=== PATIENT | male | born 1995 | race Caucasian/White ===

== ENCOUNTER 2017-05-12 21:00 | Inpatient (IN) | payer OTHER ==
[~2017-05-12] VITALS: Ht 165.1 cm; Wt 70.8 kg
--- NOTE | ~2017-05-12 | PN ---
Unit #: [id number] #: [id number] Patient: BRODY BENNETT [id number] [facility] [address] [place] [address] [id number] I MR#: [id number] NAME: BRODY BENNETT ROOM: [facility] Age: 21 Sex: M Admission Date: 05/13/2017 : 1995 Attending Physician: Wiley Hua M.D. Admitting Physician: Wiley Hua M.D. Primary Care Physician: Nuria Doctor Not In System [facility] PROGRESS NOTES DATE 05/18/2017 DISCUSSION Mr. Bennett is a 21-year-old white male who was seen today and chart was reviewed and case was discussed with the staff. He has been anxious, withdrawn and rather seclusive to himself. Meanwhile, he has been cooperative with treatment recommendations and has been taking medications and tolerating them fairly well with no reported side effects. MENTAL STATUS EXAMINATION Young white male who was casually dressed with fair personal hygiene and appears to be in no acute distress or discomfort. He was awake and alert on interaction with intact orientation. His mood was anxious with congruent affect. He denies any suicidal or homicidal ideations. His insight and judgement remains slightly impaired. TREATMENT PLAN 1. Will continue on his current treatment protocol. Will monitor his response and make further adjustments as needed. 2. Will continue to follow up. Dictated by... Wiley Hua M.D. IAA/fernandoh TD: 05/18/2017 22:03 JOB #: [id number] Unit #: [id number] #: [id number] Patient: BRODY BENNETT [facility] PROGRESS NOTES Page 1 of 1 X Wiley uHa MD PROGRESS NOTE
--- NOTE | ~2017-05-12 | CO ---
Unit #: [id number] #: [id number] Patient: BRODY BENNETT [id number] [facility] [address] [place] [address] [id number] MR#: [id number] NAME: BRODY BENNETT ROOM: [facility] Age: 21 Sex: M Admission Date: 05/13/2017 : 1995 Attending Physician: Wiley Hua M.D. Primary Care Physician: Generic Doctor Not In System Consultation Date: 05/13/2017 CONSULTATION REPORT ORDERING PROVIDER Dr. Hua. REASON FOR CONSULT Hypokalemia. SUBJECTIVE The patient refused to answer any questions. He has been refusing to eat and drink per nursing. OBJECTIVE His hospital records were reviewed and he was noted to have a potassium of 2.9. However, he was given 2 runs of potassium in the hospital and sent home with prescription for 2 days worth of oral potassium. His potassium levels were rechecked when he came to [facility] and noted to be 3.4. ASSESSMENT Hypokalemia. PLAN Plan is to continue him on the oral potassium as long as he agrees to take it. We will recheck his potassium in 48 hours. Dictated by... Mark Ware/laxmi TD: 05/14/2017 21:57 JOB #: [id number] Unit #: [id number] #: [id number] Patient: BRODY BENNETT CONSULTATION REPORT Page 1 of 1 X ESTEVAN HDEZ APRN CONSULTATION REPORT
--- NOTE | ~2017-05-12 | PN ---
Unit #: [id number] #: [id number] Patient: BRODY BENNETT [id number] [facility] [address] [place] [address] [id number] I MR#: [id number] NAME: BRODY BENNETT ROOM: [facility] Age: 21 Sex: M Admission Date: 05/13/2017 : 1995 Attending Physician: Wiley Hua M.D. Admitting Physician: Wiley Hua M.D. Primary Care Physician: Nuria Doctor Not In System [facility] PROGRESS NOTES DATE 05/15/2017 DISCUSSION Mr. Bennett is a 21-year-old, white male with mood disorder and psychosis who was seen today and chart was reviewed and case was discussed with the staff. He has been anxious, withdrawn, depressed and rather seclusive to himself with blunted affect and minimal interaction (1) cooperative with the treatment recommendations. He has been taking the medication and tolerating them fairly well with no reported side effects. MENTAL STATUS EXAM Young white male who was casually dressed with fair personal hygiene, appears to be in no acute distress or discomfort. He was awake and alert with impaired attention and concentration. His mood was anxious with congruent affect. His speech was slow and restricted in content. His thought processes were disorganized with some looseness of associations. His insight and judgement remains significantly impaired. TREATMENT PLAN 1. We will continue him on his current medications and treatment protocol. We will monitor his response to the medication and make further adjustments as needed. 2. We will continue to follow up. Dictated by... Liz Parker/lyndsay TD: 05/16/2017 04:27 JOB #: [id number] Unit #: [id number] #: [id number] Patient: BRODY BENNETT [facility] PROGRESS NOTES Page 1 of 1 X Wiley Hua MD PROGRESS NOTE
--- NOTE | ~2017-05-12 | HP ---
Unit #: [id number] #: [id number] Patient: BRODY BENNETT [id number] [place] [address] [id number] I MR#: [id number] NAME: BRODY BENNETT ROOM: [facility] Age: 21 Sex: M Admission Date: 05/13/2017 : 1995 Attending Physician: Wiley Hua M.D. Admitting Physician: Wiley Hua M.D. Primary Care Physician: Generic Doctor Not In System HISTORY AND PHYSICAL HISTORY OF PRESENT ILLNESS The patient is a 21-year-old male admitted to [address] [place] [address] on 05/13/2017 for aggression and depression. PAST MEDICAL HISTORY The patient denies. PAST SURGICAL HISTORY The patient denies. SOCIAL HISTORY He lives with his mom. He denies alcohol, tobacco and drug use. FAMILY MEDICAL HISTORY Noncontributory. ALLERGIES No known drug allergies. CURRENT MEDICATIONS 1. Remeron 2. Benztropine 3. Prozac 4. Risperidone REVIEW OF SYSTEMS CONSTITUTIONAL: No fever or chills. HEENT: Denies any sore throat, ear pain or runny nose. CARDIOVASCULAR: Denies chest pain, irregular heart rhythm or palpitations. CHEST: Denies shortness of breath or cough. No hemoptysis. GASTROINTESTINAL: Denies nausea, vomiting, diarrhea or chronic constipation. ENDOCRINE: Denies history of increased thirst or urination. No recent significant weight loss or gain. GENITOURINARY: Denies dysuria, frequency, or hematuria. SKIN: Denies any rashes. HEMATOLOGIC: Denies history of increased bleeding or bruising. MUSCULOSKELETAL: Denies any hot, swollen joints. No generalized muscle pain. NEUROLOGIC: Denies problems with vision or speech. No frequent, severe headaches. No numbness, tingling or weakness in any extremities. Denies loss of bladder or bowel control. PHYSICAL EXAM Unit #: [id number] #: [id number] Patient: BRODY BENNETT GENERAL: He is awake, alert and oriented in no acute distress. VITAL SIGNS: Temperature 98.6, heart rate 86, respiration 20, blood pressure 129/75. HEIGHT: 5'5". WEIGHT: 156 pounds. SKIN: Warm and dry without rash or lesion. HEENT: Normocephalic. TMs not viewed. Oral and nasal passages clear. Conjunctivae clear. PERRLA. EOMs intact. NECK: Supple without lymphadenopathy or thyromegaly. HEART: Regular rate and rhythm without murmur. LUNGS: Clear. ABDOMEN: Soft, nontender. : Not done. EXTREMITIES: No evidence of cyanosis, clubbing or edema. Moves all without focal deficit. NEUROLOGICAL: Grossly within normal limits. Cranial Nerves: II: Visual ramos are intact. III, IV AND : Extraocular movements are intact. Pupils are equal, round and reactive to light. V: Facial sensation is grossly normal. VII: Facial movements and expression are normal. VIII: Auditory acuity grossly intact. IX, X: Uvula is midline. Phonation is normal. XI: Patient shrugs shoulders and turns head normally. XII: Tongue protrudes in the midline. Sensory and Motor Function: Sensory and motor sensation is grossly normal. Motor: moves all extremities well. IMPRESSION Psychiatric admission. RECOMMENDATIONS Psychiatric per psychiatrist. MEDICAL: No contraindication to participate in facility activities. MEDICAL PROGNOSIS Good. MEDICAL CONDITION Stable. Dictated by... Mark Ware/lyndsay TD: 05/15/2017 04:19 JOB #: [id number] Unit #: [id number] #: [id number] Patient: BRODY BENNETT HISTORY AND PHYSICAL Page 1 of 1 X ESTEVAN HDEZ APRN HISTORY AND PHYSICAL
--- NOTE | ~2017-05-12 | PN ---
Unit #: [id number] #: [id number] Patient: KOSTAS BENNETT [id number] [facility] [address] [place] [address] [id number] I MR#: [id number] NAME: KOSTAS BENNETT ROOM: [facility] Age: 21 Sex: M Admission Date: 05/13/2017 : 1995 Attending Physician: Wiley Hua M.D. Admitting Physician: Wiley Hua M.D. Primary Care Physician: Generic Doctor Not In System [facility] PROGRESS NOTES DATE OF SERVICE 05/14/2017 DISCUSSION Kostas Bennett is a 21-year-old white male who was seen today. Chart was reviewed and case was discussed with the staff. He has been anxious, withdrawn, and rather seclusive to himself. Meanwhile, he has been cooperative with the treatment recommendations and has been taking the medications and tolerating them fairly well. MENTAL STATUS EXAMINATION Young white male who is casually dressed with fair personal hygiene, appears to be in no acute distress or discomfort. He was awake and alert with impaired attention and concentration. His mood is anxious with congruent affect. Speech is slow and restricted in content. His thought processes were disorganized with some looseness of associations. His insight and judgment remain significantly impaired. TREATMENT PLAN 1. We will continue him on his current medications and treatment protocol. We will monitor his response to the medications and make further adjustments as needed. 2. We will continue to follow up. Dictated by... Wiley Hua M.D. IAA/bzg TD: 05/15/2017 10:58 JOB #: [id number] Unit #: [id number] #: [id number] Patient: KOSTAS BENNETT PROGRESS NOTES Page 1 of 1 X Wiley Hua MD X PROGRESS NOTE
--- NOTE | ~2017-05-12 | PN ---
Unit #: [id number] #: [id number] Patient: BRODY BENNETT [id number] [facility] [address] [place] [address] [id number] I MR#: [id number] NAME: BRODY BENNETT ROOM: [facility] Age: 21 Sex: M Admission Date: 05/13/2017 : 1995 Attending Physician: Wiley Hua M.D. Admitting Physician: Wiley Hua M.D. Primary Care Physician: Nuria Doctor Not In System [facility] PROGRESS NOTES DATE May 16, 2017 DISCUSSION Mr. Bennett is a 21-year-old white male, with mood disorder, and psychosis, who was seen today and chart was reviewed and the case was discussed with the staff. He has been anxious, withdrawn, and rather seclusive to himself. Meanwhile, he has been cooperative with the treatment recommendations and he has been taking the medications and tolerating them fairly well with no reported side effects. MENTAL STATUS EXAMINATION Young white male, who was casually dressed with fair personal hygiene and appears to be in no acute distress or discomfort. He was awake and alert on interaction with intact orientation. His mood is anxious with a congruent affect. He denies any suicidal or homicidal ideations. His insight and judgment remain significantly impaired. TREATMENT PLAN 1. We will continue him on his current medications and treatment protocol, and will monitor his response to the medications, and make further adjustments as needed. 2. We will continue to followup. Dictated by... Liz Parker/mini TD: 05/17/2017 08:41 JOB #: [id number] Unit #: [id number] #: [id number] Patient: BRODY BENNETT [facility] PROGRESS NOTES Page 1 of 1 X Wiley Hua MD PROGRESS NOTE
--- NOTE | ~2017-05-12 | DS ---
Unit #: [id number] #: [id number] Patient: BRODY BENNETT [id number] [facility] [address] [place] [address] [id number] I MR#: [id number] NAME: BRODY BENNETT ROOM: 31 Age: 21 Sex: M Admission Date: 05/13/2017 : 1995 Discharge Date: 05/20/2017 Attending Physician: Wiley Hua M.D. Primary Care Physician: Generic Doctor Not In System DISCHARGE SUMMARY ADDENDUM Mr. Bennett was initially scheduled to be discharged on 05/17; however, he was still very withdrawn and seclusive and not eating and not responding to treatment interventions and as such, it was decided that discharge planning will be cancelled and he was encouraged to participate in treatment, related activities and to increase his oral intake and he is responding fairly well and as such, it was decided that he will be discharged home. We will continue treatment on an outpatient basis. DISCHARGE CONDITION Stable. PROGNOSIS Fair. Dictated by... Liz Parker/laxmi TD: 05/21/2017 06:23 JOB #: [id number] DISCHARGE SUMMARY Page 1 of 1 X Wiley Hua MD X DISCHARGE SUMMARY
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
--- NOTE | ~2017-05-12 | DS ---
Unit #: [id number] #: [id number] Patient: BRODY MARTINES [id number] [facility] [address] [place] [address] [id number] I MR#: [id number] NAME: BRODY MARTINES ROOM: [facility] Age: 21 Sex: M Admission Date: 05/13/2017 : 1995 Discharge Date: Attending Physician: Wiley Hua M.D. Primary Care Physician: Generic Doctor Not In System DISCHARGE SUMMARY IDENTIFYING DATA Mr. Martines is a 21-year-old single white male, who is a resident of [place], [place], and was transferred to us from [facility] in [place], [place], and was accompanied by his mother to the hospital. DISCHARGE DIAGNOSES Psychiatric: Bipolar disorder, most recent episode depressed, recurrent, moderate, with psychosis. Medical: None. Stressors: Mild psychosocial stressors. HISTORY OF PRESENT ILLNESS Please see initial psychiatric evaluation for details. PAST PSYCHIATRIC HISTORY Please see initial psychiatric evaluation for details. PAST MEDICAL HISTORY Please see initial psychiatric evaluation for details. HOSPITAL COURSE The patient was admitted to the adult psychiatric unit at [facility] and was oriented to the hospital environment. Routine p.r.n. medications were initiated, and he was started back on his home medications and medications were adjusted and Risperdal and Cogentin were given to help with psychosis and EPS and Prozac was also maintained for depressive symptoms. He was taking the medications regularly and was tolerating them fairly well and was able to show a decent and therapeutic response with improvement in depression and psychosis and was denying any suicidal ideations, intent, or plan and was not seen to be a danger to self or anyone else, and as such, it was decided that he will be discharged home and will continue treatment on an outpatient basis. DISCHARGE MEDICATIONS Risperdal 2 mg b.i.d. for psychosis, Cogentin 1 mg b.i.d. for EPS, Prozac 20 mg a day for depression. DISCHARGE CONDITION Stable. PROGNOSIS Fair. Unit #: [id number] #: [id number] Patient: BRODY MARTINES Dictated by... Liz Parker/kyliel TD: 05/18/2017 02:08 JOB #: [id number] DISCHARGE SUMMARY Page 1 of 1 X Wiley Hua MD DISCHARGE SUMMARY
--- NOTE | ~2017-05-12 | PN ---
Unit #: [id number] #: [id number] Patient: BRODY BENNETT [id number] [facility] [address] [place] [address] [id number] I MR#: [id number] NAME: BRODY BENNETT ROOM: P[facility] Age: 21 Sex: M Admission Date: 05/13/2017 : 1995 Attending Physician: Wiley Hua M.D. Admitting Physician: Wiley Hua M.D. Primary Care Physician: Nuria Doctor Not In System [facility] PROGRESS NOTES DATE OF SERVICE 05/19/2017 DISCUSSION Mr. Bennett is a 21-year-old white male who was seen today. Chart was reviewed and case was discussed with the staff. He has been anxious, withdrawn, and rather seclusive to himself. Meanwhile, he has been cooperative with the treatment recommendations and has been taking the medications and tolerating them fairly well with no reported side effects. MENTAL STATUS EXAMINATION Young white male who is casually dressed with fair personal hygiene, appears to be in no acute distress or discomfort. He was awake and alert with intact orientation. His mood is anxious with congruent affect. He denies any suicidal or homicidal ideations. His insight and judgment remain slightly impaired. TREATMENT PLAN 1. We will continue him on his current medications and treatment protocol. We will monitor his response to the medications and make further adjustments as needed. 2. We will continue to follow up. Dictated by... Wiley Hua M.D. IAA/bzg TD: 05/19/2017 11:24 JOB #: [id number] [facility] PROGRESS NOTES Page 1 of 1 X Wiley Hua MD PROGRESS NOTE
[2017-05-13 11:38] LABS: BUN/CREATININE RATIO 15.71; CALCIUM SERUM 9.2 mg/dL (8.4-10.2); CREATININE SERUM 0.7 mg/dL (0.6-1.4); GLOM FILT RATE Estimated 135.9 mL/min (>60); POTASSIUM 3.4 mmol/L (3.5-5.1)
[2017-05-15 10:35] LABS: BILIRUBIN,TOTAL 1.2 mg/dL (0.2-2.0); BUN/CREATININE RATIO 16.66; CALCIUM SERUM 9.2 mg/dL (8.4-10.2); CREATININE SERUM 0.9 mg/dL (0.6-1.4); GLOM FILT RATE Estimated 122.5 mL/min (>60); POTASSIUM 3.7 mmol/L (3.5-5.1); PROTEIN TOTAL SERUM 6.5 g/dL (6.0-8.3)
== END 2017-05-20 14:30 | disposition home or self-care (01) | DRG 885 ==
LOC: P1S 05-13 02:45
PROVIDERS: Nurse Practitioner Adult Health; Psychiatry & Neurology Psychiatry
DX: F31.5 Bipolar disorder, current episode depressed, severe, with psychotic features (principal); Z91.14 Patient's other noncompliance with medication regimen; E87.6 Hypokalemia
CPT/HCPCS: 80048; 80053